=== PATIENT | female | born 1975 | race Two or more races ===

== ENCOUNTER 2016-08-26 02:49 | Emergency (ER) | payer OTHER ==
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
[~2016-08-26 02:49] MED LIST: PRENATAL MULITV1 TAB PO
== END 2016-08-26 05:50 | disposition home or self-care (01) ==
LOC: CED 02:49
DX: S09.90XA Unspecified injury of head, initial encounter (principal); S00.03XA Contusion of scalp, initial encounter; S70.312A Abrasion, left thigh, initial encounter; S70.311A Abrasion, right thigh, initial encounter; Z88.0 Allergy status to penicillin; Y08.89XA Assault by other specified means, initial encounter; Y92.830 Public park as the place of occurrence of the external cause
CPT/HCPCS: 70450; 84703; 99284